=== PATIENT | male | born 1970 | race Caucasian/White ===

== ENCOUNTER → 2018-10-12 | Outpatient (REF) | payer OTHER | LOC: M SFHCPLAZ 17:30 | PROVIDERS: ATTEND Dermatology | DX: L72.0 Epidermal cyst (principal) ==

== ENCOUNTER → 2020-05-08 | Outpatient (CLI) | payer SELFPAY | LOC: M LABSMTC 14:54 | PROVIDERS: ATTEND Pediatrics | DX: Z20.828 Contact with and (suspected) exposure to other viral communicable diseases (principal) ==

== ENCOUNTER → 2022-03-10 | Outpatient (REF) | payer OTHER ==
[2022-03-10 16:59] LABS: RBC, URINE NONE SEEN /hpf (0-3); WBC, URINE NONE SEEN /hpf (0-3)
[2022-03-10 17:00] LABS: AMORPHOUS SEDIMENT, URINE LARGE AMOUNT (NEGATIVE); BACTERIA, URINE NONE SEEN; SQUAMOUS EPITHELIAL CELL URINE NONE SEEN /hpf (SMALL AMT)
== END ==
LOC: M LAB REF 16:12
PROVIDERS: ATTEND Physician Assistant Medical
DX: R35.1 Nocturia (principal); R39.12 Poor urinary stream

== ENCOUNTER → 2022-04-27 | Outpatient (REF) | payer OTHER ==
[2022-04-27 18:22] LABS: APPEARANCE, URINE MANUAL CLOUDY (CLEAR); BILIRUBIN, URINE MANUAL NEGATIVE (NEGATIVE); COLOR, URINE MANUAL YELLOW (YELLOW); GLUCOSE, URINE (UA) MANUAL NEGATIVE (NEGATIVE); KETONE, URINE MANUAL NEGATIVE (NEGATIVE); PROTEIN, URINE MANUAL NEGATIVE (NEGATIVE); SPECIFIC GRAVITY,URINE MANUAL 1.025 (1.002-1.035); UROBILINOGEN, URINE MANUAL NORMAL (NORMAL)
[2022-04-27 18:23] LABS: BLOOD URINE MANUAL POSITIVE (NEGATIVE); LEUKOCYTE ESTERASE, URINE MAN NEGATIVE (NEGATIVE); NITRITE, URINE MANUAL NEGATIVE (NEGATIVE)
[2022-04-27 18:56] LABS: AMORPHOUS SEDIMENT, URINE LARGE AMOUNT (NEGATIVE); BACTERIA, URINE NONE SEEN; RBC, URINE NONE SEEN /hpf (0-3); SQUAMOUS EPITHELIAL CELL URINE SMALL AMOUNT /hpf (SMALL AMT); WBC, URINE NONE SEEN /hpf (0-3)
[2022-04-27 19:13] LABS: HYALINE CAST, URINE NONE SEEN /lpf (0-1)
== END ==
LOC: M SMT 17:18
PROVIDERS: ATTEND Urology
DX: N41.1 Chronic prostatitis (principal)

== ENCOUNTER → 2023-07-06 | Outpatient (REF) | payer BC | LOC: M LABSMT 08:10 | PROVIDERS: ATTEND Urology | DX: R97.20 Elevated prostate specific antigen [PSA] (principal); Z53.9 Procedure and treatment not carried out, unspecified reason ==

== ENCOUNTER → 2023-07-15 | Outpatient (CLI) | payer BC, OTHER | LOC: M LAB 08:12 | PROVIDERS: ATTEND Urology | DX: R97.20 Elevated prostate specific antigen [PSA] (principal) ==

== ENCOUNTER 2023-09-30 10:53 | Day surgery (SDC) | payer BC ==
[~2023-09-30] VITALS: Ht 182.9 cm; Wt 108.0 kg
[2023-09-30] MEDS: NS 1,000 ML IV ONE (06:00)
[~2023-09-30 10:53] MED LIST: AMLO1TAB24 PO; THERTAB52 PO; [UNRECOGNIZED DRUG - CODE] PO
[2023-09-30] MEDS ORDERED: propofoL 200 MG/20 ML VIAL As Ordered ONE (13:06)
[2023-09-30 13:28] VITALS: TEMP 97.8
[2023-09-30 13:50] VITALS: BP 119/82; O2SAT 99
== END 2023-09-30 13:54 | disposition home or self-care (01) ==
LOC: M OPP 10:53
PROVIDERS: ATTEND Internal Medicine Gastroenterology
DX: Z12.11 Encounter for screening for malignant neoplasm of colon (principal); Z12.12 Encounter for screening for malignant neoplasm of rectum; K63.5 Polyp of colon; K64.8 Other hemorrhoids; K64.4 Residual hemorrhoidal skin tags; Z90.49 Acquired absence of other specified parts of digestive tract; I10 Essential (primary) hypertension; Z79.899 Other long term (current) drug therapy; Z87.891 Personal history of nicotine dependence

== ENCOUNTER → 2024-03-02 | Outpatient (CLI) | payer BC ==
[2024-03-05 18:57] LABS: PSA FREE 0.8 ng/mL; PSA TOTAL 5.1 ng/mL (< OR = 4.0)
== END ==
LOC: M LAB 16:09
PROVIDERS: ATTEND Urology
DX: R97.20 Elevated prostate specific antigen [PSA] (principal)

== ENCOUNTER → 2024-08-06 | Outpatient (REF) | payer BC, OTHER ==
[2024-08-06 19:55] LABS: RSV AMPLIFICATION POSITIVE (NEGATIVE)
== END ==
LOC: M LAB REF 17:21
PROVIDERS: ATTEND Nurse Practitioner Family
DX: R05.1 Acute cough (principal); R53.83 Other fatigue